=== PATIENT | female | born 1970 | race Caucasian/White ===

== ENCOUNTER 2017-01-29 16:12 | Emergency (ER) | payer BC, MEDICAID ==
[~2017-01-29] VITALS: Ht 162.6 cm; Wt 63.5 kg
--- NOTE | 2017-01-29 17:04 | NUR ---
Pt ambulatory to bed 1b, dr cage at bedside for exam.
[2017-01-29 17:46] VITALS: BP 128/78
== END 2017-01-29 17:48 | disposition home or self-care (01) ==
LOC: ER 16:25
DX: J02.9 Acute pharyngitis, unspecified (principal); J06.9 Acute upper respiratory infection, unspecified; F10.20 Alcohol dependence, uncomplicated
CPT/HCPCS: A4663

== ENCOUNTER 2019-01-22 19:30 | Emergency (ER) | payer OTHER, MEDICAID ==
[~2019-01-22] VITALS: Ht 152.4 cm; Wt 52.6 kg
[2019-01-22] MEDS ORDERED: BISM262O28 PO (20:05)
[2019-01-22] MEDS ORDERED: ACET-2154 PO (20:05)
--- NOTE | 2019-01-22 20:11 | NUR ---
Pt ambulated to ER with stable gait with c/o intermittent abdominal pain, nausea, & diarrhea x 2 weeks. Pt states she has hx of IBS, but usually goes away in 2 days. Pt states she has been taking Tylenol PM & PeptoBismol however not effective. No fever/chills. No chest pain/sob. Will ctm. Pt appears in no apparent distress.
--- NOTE | 2019-01-22 20:23 | NUR ---
Dr. Per COHEN MD at bedside for MSE.
[2019-01-22 20:48] LABS: BASOPHILS % (AUTO) 0.8 % (0.0-2.0); EOSINOPHILS # (AUTO) 0.1 K/uL (0.0-0.7); EOSINOPHILS % (AUTO) 1.9 % (0.0-7.0); HEMOGLOBIN 13.4 g/dL (10.9-14.3); LYMPHOCYTES # (AUTO) 2.4 K/uL (20.0-40.0); LYMPHOCYTES % (AUTO) 46.2 % (20.5-51.5); MEAN CORPUSCULAR HEMOGLOBIN 29.3 uug (24.7-32.8); MEAN CORPUSCULAR HGB CONC 33 g/dL (32.3-35.6); MEAN CORPUSCULAR VOLUME 87.6 fL (75.5-95.3); MONOCYTES # (AUTO) 0.3 K/uL (2.0-10.0); MONOCYTES % (AUTO) 5.4 % (0.0-11.0); NEUTROPHILS # (AUTO) 2.4 K/uL (1.8-8.9); NEUTROPHILS % (AUTO) 45.7 % (38.5-71.5); PLATELET COUNT (AUTO) 134 K/uL (179-408); RED BLOOD CELL COUNT(AUTO) 4.57 MIL/uL (3.63-4.92); WHITE BLOOD COUNT (AUTO) 5.2 K/uL (3.8-11.8)
[2019-01-22 20:48] LABS: *BILIRUBIN,URIN NEGATIVE (NEGATIVE); *BLOOD, URINE 1+ (NEGATIVE); *CLARITY,URINE CLEAR (CLEAR); *COLOR,URINE YELLOW (YELLOW); *KETONES,URINE TRACE (NEGATIVE); *UROBILINOGEN,URINE 0.2 E.U./dl (NORMAL); LEUKOCYTE ESTERASE ,URINE TRACE (NEGATIVE); NITRITE, URINE NEGATIVE (NEGATIVE); PH,URINE 5.5 (5.0-8.0); UGLUCOSE NEGATIVE (NEGATIVE)
[2019-01-22 20:55] LABS: MUCUS,URINE FEW /LPF (0-FEW); SQUAMOUS EPITHELIAL CELL,UR FEW /HPF (NONE SEEN)
[2019-01-22 20:56] LABS: CREATININE 0.6 mg/dL (0.6-1.3); POTASSIUM 3.8 mmol/L (3.5-5.1)
[2019-01-22 21:01] LABS: BILIRUBIN,DIRECT 0.1 mg/dL (0.0-0.2); BILIRUBIN,TOTAL 0.3 mg/dL (0.2-1.0); TOTAL PROTEIN, SERUM 7.9 g/dL (6.4-8.2)
--- NOTE | 2019-01-22 21:04 | NUR ---
Ultrasound at bedside.
--- NOTE | 2019-01-22 21:52 | NUR ---
Pt resting comfortably in bed. No s/s of distress noted. Pending results.
--- NOTE | 2019-01-22 22:52 | NUR ---
Patient discharged to home in stable conditon. Written and verbal after care instructions given. Patient verbalizes understanding of instructions. Pt ambulated out of ER in stable gait w all belongings. VSS. NAD noted.
[2019-01-22 22:53] VITALS: BP 142/81
== END 2019-01-22 22:55 | disposition home or self-care (01) ==
LOC: ER 19:30
DX: R10.10 Upper abdominal pain, unspecified (principal); R11.2 Nausea with vomiting, unspecified; R19.7 Diarrhea, unspecified; Z79.899 Other long term (current) drug therapy
CPT/HCPCS: 36415; 70030-TC; 76700; 83690; 85025; 85730; A4663

== ENCOUNTER 2020-11-28 20:31 | Emergency (ER) | payer OTHER, MEDICAID ==
[~2020-11-28] VITALS: Ht 152.4 cm; Wt 5.0 kg
[~2020-11-28 20:31] MED LIST: ACET-2154 PO; BISM262O28 PO
--- NOTE | 2020-11-28 21:10 | NUR ---
Dr. Regan at bedside for MSE.
--- NOTE | 2020-11-28 21:25 | NUR ---
Xray at bedside.
--- NOTE | 2020-11-28 22:39 | NUR ---
Patient discharged to home in stable condition. Written and verbal after care instructions given. Patient verbalizes understanding of instructions. Stressed follow up or return to ER for worsening s/s. Patient out of ER on wheelchair, crutches dispensed gait training provided, no acute signs of distress, VSS, all belongings taken, provided with copies of Xray result and CD, assisted patient on transfer from wheelchair to car, no falls noted, to be driven home by via private vehicle.
[2020-11-28 22:40] VITALS: BP 144/90
== END 2020-11-28 22:59 | disposition home or self-care (01) ==
LOC: ER 20:33
DX: S82.61XA Displaced fracture of lateral malleolus of right fibula, initial encounter for closed fracture (principal); V19.9XXA Pedal cyclist (driver) (passenger) injured in unspecified traffic accident, initial encounter; Y93.55 Activity, bike riding; Y92.89 Other specified places as the place of occurrence of the external cause; G50.0 Trigeminal neuralgia
CPT/HCPCS: 73610; A4663